=== PATIENT | female | born 1955 | race Caucasian/White ===

== ENCOUNTER → 2017-07-29 | Outpatient (CLI) | payer OTHER ==
[~2017-07-29] VITALS: Ht 160 cm; Wt 99.8 kg
[~2017-07-29] MED LIST: ALLERGY10 M1 PO; ALPRAZOLAM 0.0.25 MG PO; AMITRIPTYLINE H25 M2 PO; CALCIUM 500 +1 EAC5 PO; CORRECTOL5 M1 PO; CYMBALTA60 MG PO; FOLIC ACID1 MG PO; HYDROCHLOROTH12.5 M2 PO; HYDROCODONE-AP1 EAC6 PO; HYDROXYCHLOROQ200 M1 PO; METHOTREXATE 22.5 MG PO; MIRAPEX0.25 MG PO; MULTI VITAMIN1 EACH PO; NIFEDIPINE ER90 M1 PO; PREDNISONE 5 MG5 M1 PO; PROBIOTIC1 EAC2 PO; PROTONIX40 M1 PO; TESSALON PERLE100 MG PO; ZANAFLEX4 MG PO; voltaren PO
--- NOTE | ~2017-07-29 | HPC ---
[facility] [address] [place] [address] PAIN MANAGEMENT CONSULTATION Name: NADEEM CASTRO Room #: REG [facility]..#: [id number] Admission: 07/29/17 Attend Phys: Ludwin Remy MD Discharge: Date of : 59 Report #: [id number] THIS REPORT FOR: //name// CC: Molly Remy DATE OF SERVICE: 07/29/2017 REASON FOR CONSULTATION: Dr. Conner, I would like for you to manage my opioid medication. HISTORY OF PRESENT ILLNESS: The patient is a 62-year-old with chronic pain. She describes her pain intensity on a daily basis somewhere around 7. She describes muscle spasms in her neck that radiates into her arms, intermittent headaches and pain in both knees. She carries a diagnosis of lupus and she reports that she has been told she has a spondylolisthesis; however, with questioning, I believe this is likely spondylosis. Her pain is affected by weather and activities as well as we discussed. When she rests and is quiet and takes medication including hydrocodone and muscle relaxers, she feels fine. Her opioid history is not extensive nor high dose. She began on opioids in 2010 following back surgery with Dr. Martinez. He prescribed medications for 90 days and then she said she has been on them she believes more or less continuously for the last 7 years. She has never been on high dose and even today takes no more than one to two tablets of hydrocodone 5/325 daily. The medication is helpful. She consistently sees relief when her pain is severe. She has been cautious not to increase her dose. She is, however, on alprazolam 0.25 mg 2-3 tablets daily and the combination of the benzodiazepine and hydrocodone have been considered dangerous and she has been made aware by Dr. Conner's office. She has been on alprazolam for nearly 20 years for generalized anxiety disorder. She also in further questioning seems to have some degree of agoraphobia. This will be discussed further in social history. She has never had a problem with a combination of her hydrocodone and Xanax. She is on some polypharmacy with multiple centrally-acting drugs. MEDICATIONS: Include hydrocodone and Zanaflex, Cymbalta 60 mg daily, Zanaflex 4 mg daily as needed, benzonatate as needed, Protonix 40 mg daily, Mirapex 0.25 at bedtime, nifedipine 90 mg at bedtime, Plaquenil 200 mg daily, Correctol 5 mg b.i.d., probiotics, allergy medication, calcium, vitamins and recently she was started on Voltaren 50 mg b.i.d. She has not reported significant improvement in pain with the use of her Voltaren. ALLERGIES: NKDA. PAST MEDICAL HISTORY: Remarkable for hypertension and irritable bowel syndrome. [address] [address] PAIN MANAGEMENT CONSULTATION Name: NADEEM CASTRO Room #: REG [facility].#: [id number] Admission: 07/29/17 Attend Phys: Ludwin Remy MD Discharge: Date of : 59 Report #: [id number] She was diagnosed with lupus in 02/2014. She has suffered with chronic anxiety and intermittent depression. She has been on longstanding antidepressant for pain and mood disorder. SOCIAL HISTORY: She is , has 2 children and 5 grandchildren. She and her have been for 42 years. 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 Her , however, is considered disabled. He is disabled from gainful employment, but does most of the work around the house. He has had cancer in the past. He is on no pain medication. He does the laundry, cleans the house and does the shopping. She is unable to do so because of anxiety in many situations. They enjoy a property where she travels out of town oftentimes on the weekend and likes to do activities such as gardening and ____ work. They are not particularly social. She denies use of tobacco, having quit in 2010 and does not drink. She has no history of addiction. She has no history of abuse of physical type growing up. Her father was an alcoholic, but she was adopted. Her mother will no longer talk to her and she described her childhood as rough. Impacted pain scores are highest 5/10 for sleep and enjoyment of life, her total score is 26/70 not too bad for our clinic. REVIEW OF SYSTEMS: Positive for 40-pound weight gain, which occurred after she began on prednisone prescribed by Dr. Meehan. She plans to see him later this month. She has chronic headaches, blurred vision. She complains of mouth sores, dyspnea on exertion. She has intermittent and chronic abdominal pain, frequent urination, and incontinence. She has nervousness and depression and anxiety disorder described above. PHYSICAL EXAMINATION: GENERAL: She is pleasant and straightforward. She does not appear anxious or overmedicated today. VITAL SIGNS: Her blood pressure is 134/84, heart rate is 88, respirations 16, O2 saturation on room air 99%. Her BMI is 39. She is considered obese with that number. NEUROLOGIC: She is able to move independently from sitting to standing, walk with antalgic features to her gait. SKIN: It is noticed on physical exam that there is a scar overlying the midline of the lumbar spine. HEENT: Within normal limits. NECK: Supple without significant range of motion loss. She has tenderness posteriorly. CHEST: Clear to auscultation. CARDIAC: Rhythm is regular. ABDOMEN: Soft. EXTREMITIES: Shows good movement in all extremities, with no tender joints. No tender muscles. No focal weakness is noted. No numbness. Deep tendon reflexes are diminished biceps, triceps and brachioradialis in the upper extremities and [address] [address] PAIN MANAGEMENT CONSULTATION Name: NADEEM CASTRO Room #: REG [facility]#: [id number] Admission: 07/29/17 Attend Phys: Ludwin Remy MD Discharge: Date of : 59 Report #: [id number] also diminished in the lower extremities, knee and ankle. X-rays available at this time, none. Records reviewed from Dr. Conner's office. IMPRESSION: 1. Chronic intractable pain with myofascial components, cervicalgia and she has had a previous laminectomy with post-laminectomy syndrome. 2. Lupus. 3. Anxiety disorder with probable agoraphobia. 4. Alf opioid use for intractable pain. 5. Hypertension. 6. Irritable bowel syndrome. RECOMMENDATIONS: We discussed pain as a biopsychosocial phenomena. We have talked about her physical pain and the importance of regular exercise program. A simple walking program was recommended at the start and she should initiate that as soon as possible. The benefits of such were discussed. Weight loss is important and eating properly. Her weight gain is most likely attributed to the initiation of prednisone therapy. She should discuss this with Dr. Meehan. Remaining physically active and socially active is a lopez. She does not like to be with people, but she does enjoy her family. The fact that she continues to work is an important aspect of high functioning. She was asked to establish 3 goals. These goals are to assist her with more housework to be able to do more gardening at their country place and to continue working. Opioid dependence. Her use of hydrocodone is so small that I do not believe it should present problems. The combination of benzodiazepine and hydrocodone were reviewed with her. Importance of maintaining medication carefully under the Center for Disease Control guidelines was reviewed in detail with her today. We talked about all aspects of medication management and an written opioid agreement was established today. In addition to the opioid risk tool, a buccal screen was performed at today's initial visit. I plan to see her back in 1 month and then we will extend her visits to every 3 months given her low dose of medication. She seems at a very low risk of any sort of opioid abuse disorder or addiction. She is grateful for the pain relief she gets. We are glad that we can help provide these medications for her. <ELECTRONICALLY SIGNED> By: Ludwin Remy MD 09/04/17 1640 [id number] [id number] Ludwin Remy MD /nt
[2017-07-29 09:58] VITALS: BP 134/84
== END ==
LOC: PAIN 07:02
DX: M96.1 Postlaminectomy syndrome, not elsewhere classified (principal); M79.1 Myalgia; F41.9 Anxiety disorder, unspecified; I10 Essential (primary) hypertension; F11.90 Opioid use, unspecified, uncomplicated; K58.9 Irritable bowel syndrome, unspecified; Z98.890 Other specified postprocedural states

== ENCOUNTER → 2017-08-26 | Outpatient (CLI) | payer OTHER ==
[~2017-08-26] VITALS: Ht 160 cm; Wt 103.6 kg
--- NOTE | ~2017-08-26 | HPC ---
[facility] [address] [address] [place] [address] PAIN MANAGEMENT CONSULTATION Name: NDAEEM CASTRO Room #: REG [facility].#: [id number] Admission: 08/26/17 Attend Phys: Ludwin Remy MD Discharge: Date of : 59 Report #: [id number] THIS REPORT FOR: //name// CC: Molly Remy DATE OF SERVICE: 08/26/2017 DATE OF REGISTRATION: 08/26/2017 Followup visit for management of low dose opioid medication. The patient returns to pain clinic today for renewal of her medications. She has lupus, chronic intractable pain related to several different pain generators, which were reviewed at her last visit. Over the course of the years, she has been using hydrocodone at a very small dose in combination with a benzodiazepine. There is much written about this combination when taken in excess or used without knowledge. In smaller doses it is extremely well tolerated. She uses alprazolam 0.25 mg, the lowest possible dose in addition to hydrocodone 5/325 once or twice a day, also the lowest possible dose. This seems to be helpful for her pain. The pain is severe to the levels of intensity 7-8/10. She has seen improvement in her pain when she uses the medication carefully. She has tried to increase her activities that we discussed at her last visit. She is morbidly obese with a BMI of 40 and has a history of lupus arthritis and osteoarthritis. She has not been a fall risk and has not fallen, takes no blood thinners. Dr. Conner manages blood pressure medication. She has had some recent increase in edema in her lower extremities. We have raised the possibility this could be due to nonsteroidal anti-inflammatory drug Voltaren, which is provided to her by her data technical lead. I would like for her to discuss that with them, but my suggestion would be to see if a trial off the medication is helpful. She has also mentioned to me that she has some elevation of her creatinine and the use of a nonsteroidal anti-inflammatory drug that may be far more dangerous than the use of a small dose of the opioid medication that I have been requested to prescribe. PHYSICAL EXAMINATION: She is pleasant, alert and oriented, without signs of overmedication. Blood pressure is 150/96, heart rate is 83, BMI is 40.5. She has tenderness at multiple joints not consistent with her complaints of arthropathy and arthritis. She has low back tenderness across the scar from previous surgery. Deep tendon reflexes throughout are diminished. IMPRESSION: 1. Chronic intractable pain with multiple pain generators including low back with previous laminectomy and multiple myofascial pains. She has chronic cervicalgia related to arthritis. 2. [place] [address] PAIN MANAGEMENT CONSULTATION Name: NADEEM CASTRO Room #: REG [facility].#: [id number] Admission: 08/26/17 Attend Phys: Ludwin Remy MD Discharge: Date of : 59 Report #: [id number] 3. Anxiety disorder with agoraphobia. 4. Opioids provided under terms of an opioid agreement. Her maximum MME is 10 per day. 5. Hypertension. 6. Irritable bowel syndrome. PLAN: I renewed her medications under terms of written agreement and keeping her with her protocol, a buccal drug screen has been performed. The importance of safeguarding all medications discussed. Followup visit is scheduled in the pain clinic in 2 months. I have provided with date of release prescriptions. I will extend this to 3 months if there are no issues. <ELECTRONICALLY SIGNED> By: Ludwin Remy MD 09/04/17 1640 1215 [id number] Ludwin Remy MD /nt
[2017-08-26 11:03] VITALS: BP 150/96
== END ==
LOC: PAIN 07:19
DX: M54.5 Low back pain (principal); M32.9 Systemic lupus erythematosus, unspecified; F41.9 Anxiety disorder, unspecified; I10 Essential (primary) hypertension; K58.9 Irritable bowel syndrome, unspecified; F11.90 Opioid use, unspecified, uncomplicated

== ENCOUNTER → 2017-10-28 | Outpatient (CLI) | payer OTHER ==
[~2017-10-28] VITALS: Ht 162.6 cm; Wt 99.2 kg
[~2017-10-28] MED LIST changes: -FOLIC ACID1 MG PO; -METHOTREXATE 22.5 MG PO
--- NOTE | ~2017-10-28 | HPC ---
[facility] [place] [address] PAIN MANAGEMENT CONSULTATION Name: NADEEM CASTRO [id number] Admission: 10/28/17 Attend Phys: Sheldon Mccall DO Discharge: Date of : 59 Report #: [id number] THIS REPORT FOR: //name// CC: Molly Mccall DATE OF SERVICE: 10/28/2017 The patient is a 62-year-old female seen twice by Dr. Ludwin Remy, initially seen in consultation 07/29/2017, diagnosed with chronic intractable pain, myofascial component, status post lumbar decompressive laminectomy, anxiety disorder and complex medication management. Dr. Remy continued the patient on low-dose hydrocodone, which she claims she was using b.i.d., [place] 5/325. She was seen in followup 29 days later, 08/26/2017. Claiming to use her hydrocodone b.i.d. A buccal drug swab was accomplished at that time. It was negative for prescribed medication. Positive for Xanax (the patient did note that use on consultation, 0.25 mg). Today, she returns to pain clinic noting that she has continued to use hydrocodone and states she used 2 last night. When I asked if she typically used 2 at a time, she stated she typically uses 1-2 at bedtime, typically 2. States that she uses 1 tablet occasionally throughout the day. When I pointed out the obvious discrepancy in math, taking 2 tablets generally every night with a third tablet throughout the day, she should "run out early" of her medication. Nonetheless, she assured me she has taken 2 hydrocodone last night. Given this and the absent buccal swab last visit, we did elect to get a urine drug screen today. It should be positive for hydrocodone and/or metabolites. This test may be more sensitive to the metabolites than a buccal. The patient notes that she was walking backwards and talking to a friend and fell on 09/14/2017. States she did use her hydrocodone more aggressively at that time. She notes pain is primarily in her shoulders, upper back and legs and feet. She relates it to her lupus. She does use Plaquenil, which she has since 2013 for this as a disease modifying agent. She had used prednisone for a good deal of time that she stopped that 2 months ago. She felt it was adding to weight increase. PHYSICAL EXAMINATION: Today shows 62-year-old female, BMI is 37.5 kilograms per meter squared. Blood pressure and vital signs are all within normal limits as noted on the EMR. Subjective pain score is 5 on VAS. Again, she has fallen once in the last 3 months as noted in the chief complaint. Her opiate consent to treat contract was signed 07/29/2017. She scores in the low risk category for opiate diversion. Functional assessment tool score is 26/[place] [address] PAIN MANAGEMENT CONSULTATION Name: NADEEM CASTRO Room #: REG [facility]#: [id number] Admission: 10/28/17 Attend Phys: Sheldon Mccall DO Discharge: Date of : 59 Report #: [id number] chair using armrest. Gait is tandem and moderately endomorphic build. Upper and lower extremity strength is generally symmetric. ASSESSMENT: Chronic pain syndrome requiring complex medication management, history of lumbar decompressive laminectomy, lupus syndrome requiring complex medication management. RECOMMENDATION: We will renew hydrocodone 5/325, one tablet b.i.d., repeat a random drug screen, we will try a urine screen today. Follow up in 1 month to evaluate a diagnostic study and for anticipated multi-month prescription at that time. <ELECTRONICALLY SIGNED> By: Sheldon Mccall DO 10/31/17 0927 1442 [id number] Sheldon Mccall DO /nt
[2017-10-28 13:11] VITALS: BP 122/79
== END ==
LOC: PAIN 06:51
PROVIDERS: Anesthesiology Pain Medicine
DX: G89.4 Chronic pain syndrome (principal); Z79.899 Other long term (current) drug therapy

== ENCOUNTER → 2020-11-11 | Outpatient (CLI) | payer OTHER ==
[~2020-11-11] MED LIST changes: +FOLIC ACID1 MG PO; +METHOTREXATE 22.5 MG PO
== END ==
LOC: SJCVCIMAG 09:05
PROVIDERS: ATTEND Internal Medicine
DX: I65.23 Occlusion and stenosis of bilateral carotid arteries (principal); I35.1 Nonrheumatic aortic (valve) insufficiency; I35.8 Other nonrheumatic aortic valve disorders; R09.89 Other specified symptoms and signs involving the circulatory and respiratory systems; I10 Essential (primary) hypertension; E78.5 Hyperlipidemia, unspecified; Z87.891 Personal history of nicotine dependence